=== PATIENT | female | born 1965 | race Caucasian/White ===

== ENCOUNTER 2023-05-10 04:32 | Inpatient (IN) | payer OTHER ==
[~2023-05-10] VITALS: Ht 175.3 cm; Wt 73.2 kg
[2023-05-10 06:38] LABS: BASOPHILS % (AUTO) 0.6 % (0-1); EOSINOPHILS % (AUTO) 0.2 % (0-6); HEMATOCRIT 36.8 % (35.0-45.0); HEMOGLOBIN 12.8 g/dl (12.0-16.0); LYMPHOCYTES # (AUTO) 0.8 X10'3 (1.1-4.8); LYMPHOCYTES % (AUTO) 11.4 % (21-51); MEAN CORPUSCULAR HEMOGLOBIN 30.4 PG (27.0-31.0); MEAN CORPUSCULAR HGB CONC 34.8 g/dL (33.0-36.5); MEAN CORPUSCULAR VOLUME 87.4 FL (78-98); MEAN PLATELET VOLUME 8.4 FL (7.4-10.4); MONOCYTES # (AUTO) 0.4 X10'3 (0-0.9); MONOCYTES % (AUTO) 5.2 % (2-12); NEUTROPHILS # (AUTO) 6.2 X10'3 (1.8-7.7); NEUTROPHILS % (AUTO) 82.6 % (42-75); PLATELET COUNT 268 X10'3 (140-440); RED BLOOD COUNT 4.21 X10'6 (4.20-5.60); WHITE BLOOD COUNT 7.5 X10'3 (4.5-11.0)
[2023-05-10 06:54] LABS: ALANINE AMINOTRANSFERASE 13 U/L (12-78); ALBUMIN 3.4 G/DL (3.4-5.0); ALBUMIN/GLOBULIN RATIO 0.9 (1.1-1.5); ALKALINE PHOSPHATASE 74 IU/L (46-116); ANION GAP 8 (8-16); ASPARTATE AMINO TRANSFERASE 12 U/L (10-37); BLOOD UREA NITROGEN 15 MG/DL (7-18); BUN/CREATININE RATIO 20.3 (10.0-20.0); CALCIUM 9.1 MG/DL (8.5-10.1); CHLORIDE 103 MMOL/L (99-107); CREATININE 0.74 MG/DL (0.40-0.90); GLUCOSE 123 MG/DL (70-104); POTASSIUM 3.7 MMOL/L (3.5-5.1); PRO BRAIN NATRIURETIC PEPTIDE 314 PG/ML (0-125); SODIUM 139 MMOL/L (135-145); TOTAL CARBON DIOXIDE 27.6 MMOL/L (24-32); TOTAL PROTEIN 7.2 G/DL (6.4-8.2); eCRCL 90 ML/MIN; eGFR 81 ML/MIN
[2023-05-10 11:49] LABS: ABG BASE EXCESS -0.1 mmol/L (-2.0-2.0); ABG HCO3 23.8 mmol/L (22.0-26.0); ABG OXYGEN SATURATION 95.2 % (94-97); ABG PCO2 (T) 36.8 mmHg (32.0-45.0); ABG PO2 (T) 75.7 mmHg (75.0-100.0); ALLEN'S TEST POSITIVE; FCOHb 0.4 % (0.0-3.9); FHHb 4.8 % (0.0-5.0); FMetHb 0.3 % (0.0-1.5); FO2Hb 94.5 % (94-97); MODE ROOM AIR; PATIENT TEMPERATURE 37.3; TOTAL HEMOGLOBIN 13.6 G/dl (12.0-16.0)
--- NOTE | 2023-05-10 12:04 | NUR ---
Pt currently laying down in bed, appears to be sleeping. Respirations equal and unlabored. No acute distress noted at this time.
[2023-05-10] MEDS ORDERED: dexamethasone sod phosphate 10mg/ml inj IV STA (12:06)
[2023-05-10] MEDS: levetiracetam inj 1,000 MG in normal saline 100ml IV soln 100 ML IV SCH ×2 (13:01→20:56)
[2023-05-10] MEDS ORDERED: ondansetron/PF 4mg/2ml inj IV ONE (14:30)
[2023-05-10] MEDS ORDERED: morphine 4 MG/ML inj SYRINge IV ONE (14:30)
--- NOTE | 2023-05-10 14:38 | NUR ---
PT REFUSES PAIN MEDICATIONS AT THIS TIME
--- NOTE | 2023-05-10 16:30 | NUR ---
18f alcala cath placed.
--- NOTE | 2023-05-10 17:18 | NUR ---
[facility] DECLINED 1533 MELLISA DECLINED 1616 [facility] DECLINED 1714
--- NOTE | 2023-05-10 17:39 | NUR ---
TO MRI AT THIS TIME.
[2023-05-10] MEDS ORDERED: LORazepam 2 mg/ml vial IV ONE ×2 (18:05)
--- NOTE | 2023-05-10 18:06 | NUR ---
PER DR MAI GIVE 1MG ATIVAN IVP NOW FOR ANXIETY DURING MRI. ADDITIONAL 1MG ATIVAN IVP ORDERED PRN ANXIETY/AGITATION FOR MRI.
[2023-05-10 22:04] LABS: GLUCOSE,CSF 68 MG/DL (40-75); TOTAL PROTEIN,CSF 72 MG/DL (15-45)
[2023-05-10 22:06] LABS: CREATINE KINASE 44 U/L (26-192)
[2023-05-10 22:12] LABS: APTT 26 SECONDS (22-32); INR 1.1 INR; PROTHROMBIN TIME 11.3 SECONDS (9.0-12.0)
[2023-05-10 22:17] LABS: CREATINE KINASE MB < 0.5 ng/ml (0.3-3.6)
[2023-05-10 22:24] LABS: APPEARANCE,CSF CLEAR; CSF SUPERNATANT COLOR COLORLESS; CSF VOLUME 11 ML; TUBE# COUNTED 1
[2023-05-10 22:30] LABS: CSF RBC 150 /CU MM (0); CSF WBC CT 33 /CU MM (0-5)
[2023-05-10 22:31] LABS: APPEARANCE,CSF CLEAR; CSF SUPERNATANT COLOR COLORLESS; CSF VOLUME 11 ML; CSF WBC CT 20 /CU MM (0-5); TUBE# COUNTED 4
[2023-05-10 22:32] LABS: CSF RBC 2 /CU MM (0)
[2023-05-10 22:39] LABS: LYMPHOCYTES,CSF 18 % (40-80); MONOCYTES,CSF 52 % (15-45); NEUTRO,CSF 30 % (0-6)
[2023-05-10 22:41] LABS: LYMPHOCYTES,CSF 18 % (40-80); NEUTRO,CSF 25 % (0-6)
[2023-05-10 22:42] LABS: MONOCYTES,CSF 57 % (15-45)
[2023-05-10 23:04] LABS: BILIRUBIN,URINE NEGATIVE (Neg); CLARITY,URINE CLEAR (Clear); COLOR,URINE YELLOW (Yellow); GLUCOSE, URINE NEGATIVE (Neg); KETONES,URINE >=80 mg/dl (Neg); LEUKOCYTE ESTERASE ,URINE NEGATIVE (Neg); NITRITES, URINE NEGATIVE (Neg); OCCULT BLOOD,URINE NEGATIVE (Neg); PROTEIN,URINE NEGATIVE (Neg)
[2023-05-10] MEDS ORDERED: ringers solution, lacted 1,000 ML IV ONE (23:05)
[2023-05-10] MEDS ORDERED: CefTRIAXone 2gm/D5W 50ml BAG 50 ML IV ONE (23:05)
[2023-05-10] MEDS ORDERED: vancomycin/NS 1 GM ADD-VANTAGE 250 ML IV ONE (23:05)
[2023-05-10 23:08] LABS: UA COLLECTION TYPE FOLEY CATH
[2023-05-10 23:14] LABS: URINE AMPHETAMINE SCREEN NEGATIVE (Neg); URINE BARBITUATE SCREEN NEGATIVE (Neg); URINE BENZODIAZEPINES SCREEN NEGATIVE (Neg); URINE CANNABINOID SCREEN NEGATIVE (Neg); URINE COCAINE SCREEN NEGATIVE (Neg); URINE METHADONE SCREEN NEGATIVE (Neg); URINE OPIATE SCREEN NEGATIVE (Neg); URINE PHENCYCLIDINE SCREEN NEGATIVE (Neg)
[2023-05-11] MEDS ORDERED: ondansetron/PF 4mg/2ml inj IV PRN (01:55)
[2023-05-11] MEDS ORDERED: mag hydrox/Alum hydrox/simeth 30ml oral suspension PO PRN (01:55)
[2023-05-11] MEDS ORDERED: potassium Cl 40MEQ/1/2NS 520ml 520 ML IV PRN (01:55)
[2023-05-11] MEDS ORDERED: potassium Cl 20 mEq SR tablet PO PRN (01:55)
[2023-05-11] MEDS ORDERED: acetaminophen 325mg tablet PO PRN (01:55)
[2023-05-11] MEDS ORDERED: acetaminophen 650mg rectal suppository RC PRN (01:55)
[2023-05-11] MEDS ORDERED: magnesium 4gm in 100ml NS 100 ML IV PRN (01:55)
[2023-05-11] MEDS ORDERED: NO HOME MEDS (02:34)
[2023-05-11] MEDS: acyclovir inj 1,000 MG in normal saline 250ml IV soln 250 ML IV SCH ×2 (03:33→08:22)
[2023-05-11] MEDS: levetiracetam inj 1,000 MG in normal saline 100ml IV soln 100 ML IV SCH ×2 (07:18→20:30)
[2023-05-11 07:22] LABS: BASOPHILS % (AUTO) 0.4 % (0-1); EOSINOPHILS % (AUTO) 0 % (0-6); HEMATOCRIT 36.9 % (35.0-45.0); HEMOGLOBIN 12.7 g/dl (12.0-16.0); LYMPHOCYTES # (AUTO) 1.1 X10'3 (1.1-4.8); LYMPHOCYTES % (AUTO) 13.9 % (21-51); MEAN CORPUSCULAR HEMOGLOBIN 29.3 PG (27.0-31.0); MEAN CORPUSCULAR HGB CONC 34.4 g/dL (33.0-36.5); MEAN CORPUSCULAR VOLUME 85.1 FL (78-98); MEAN PLATELET VOLUME 7.9 FL (7.4-10.4); MONOCYTES # (AUTO) 0.5 X10'3 (0-0.9); MONOCYTES % (AUTO) 6.8 % (2-12); NEUTROPHILS # (AUTO) 6.2 X10'3 (1.8-7.7); NEUTROPHILS % (AUTO) 78.9 % (42-75); PLATELET COUNT 284 X10'3 (140-440); RED BLOOD COUNT 4.33 X10'6 (4.20-5.60); RED CELL DISTRIBUTION WIDTH 14.2 % (11.5-14.5); WHITE BLOOD COUNT 7.8 X10'3 (4.5-11.0)
[2023-05-11 07:39] LABS: ANION GAP 10 (8-16); BLOOD UREA NITROGEN 15 MG/DL (7-18); CALCIUM 8.9 MG/DL (8.5-10.1); CHLORIDE 107 MMOL/L (99-107); CREATININE 0.75 MG/DL (0.40-0.90); GLUCOSE 113 MG/DL (70-104); MAGNESIUM 2.1 MG/DL (1.5-2.4); POTASSIUM 3.9 MMOL/L (3.5-5.1); SODIUM 142 MMOL/L (135-145); TOTAL CARBON DIOXIDE 24.9 MMOL/L (24-32); eCRCL 89 ML/MIN; eGFR 80 ML/MIN
[2023-05-11 07:40] LABS: ALANINE AMINOTRANSFERASE 13 U/L (12-78); ALBUMIN 3.3 G/DL (3.4-5.0); ALKALINE PHOSPHATASE 71 IU/L (46-116); ASPARTATE AMINO TRANSFERASE 9 U/L (10-37); BILIRUBIN,TOTAL 0.7 MG/DL (0.1-1.0); TOTAL PROTEIN 6.6 G/DL (6.4-8.2)
[2023-05-11] MEDS ORDERED: CefTRIAXone 2gm/D5W 50ml BAG 50 ML IV SCH (08:00)
[2023-05-11] MEDS: K and/or MAG REPLACEMENT MC SCH ×2 (08:00→20:40)
[2023-05-11] MEDS ORDERED: docusate sod 100mg capsule PO SCH (08:00)
--- NOTE | 2023-05-11 08:11 | NUR ---
Pt seen by PT and had swallow eval. Pt cleared for full liquid diet.
--- NOTE | 2023-05-11 08:13 | NUR ---
Hospitalist Dr. Salamanca called and updated that pt without maintenance IV fluids. Received VO for NS to run at 50ml/hr.
[2023-05-11] MEDS: normal saline 1000ml 1,000 ML IV SCH (08:23)
--- NOTE | 2023-05-11 15:52 | NUR ---
REPORT GIVEN TO BRENNA BLAIR ASSIGNED ROOM 0574I
[2023-05-11] MEDS ORDERED: NORMAL SALINE IV SCH (16:00)
[2023-05-11] MEDS ORDERED: ACYCLOVIR IV SCH (16:00)
--- NOTE | 2023-05-11 17:06 | NUR ---
Received patient to room 4016 in bed accompanied by x2 family members and staff. Patient obtunded and unable to answer questions. Oriented spouse and son to room and call light. Call light placed within patients reach. Bed low and locked, side railx2 up.
[2023-05-11 17:09] VITALS: BP 124/60; PULSE 57; RESP 20; TEMP 97.3; O2SAT 97
[2023-05-11 17:42] VITALS: RESP 18; O2SAT 97
[2023-05-11 18:00] VITALS: BP 146/57; PULSE 78; RESP 16; TEMP 98.9; O2SAT 96
--- NOTE | 2023-05-11 18:13 | NUR ---
Problems reprioritized. Patient report given, questions answered & plan of care reviewed with NICCI De La O.
[2023-05-11 20:00] VITALS: RESP 18; O2SAT 94
[2023-05-11] MEDS: enoxaparin 40mg/0.4ml syringe SQ SCH (20:30)
[2023-05-11] MEDS: CefTRIAXone 2gm/D5W 50ml BAG 50 ML IV SCH (21:25)
[2023-05-11 22:00] VITALS: BP 125/43; PULSE 58; RESP 17; TEMP 97.7; O2SAT 96
[2023-05-12] MEDS: normal saline 1000ml 1,000 ML IV SCH ×3 (02:04→19:33)
--- NOTE | 2023-05-12 06:29 | NUR ---
Problems reprioritized. Patient report given, questions answered & plan of care reviewed with RAEANN GRAJEDA.
--- NOTE | 2023-05-12 06:43 | NUR ---
Patient in room ORTHO 4016. I have received report from Moraima GRAJEDA and had the opportunity to ask questions and assume patient care.
[2023-05-12 07:00] LABS: ALANINE AMINOTRANSFERASE 9 U/L (12-78); ALBUMIN/GLOBULIN RATIO 0.9 (1.1-1.5); ALKALINE PHOSPHATASE 66 IU/L (46-116); ANION GAP 10 (8-16); ASPARTATE AMINO TRANSFERASE 9 U/L (10-37); BILIRUBIN,TOTAL 0.6 MG/DL (0.1-1.0); BLOOD UREA NITROGEN 18 MG/DL (7-18); BUN/CREATININE RATIO 22.8 (10.0-20.0); CALCIUM 8.9 MG/DL (8.5-10.1); CHLORIDE 108 MMOL/L (99-107); CREATININE 0.79 MG/DL (0.40-0.90); GLUCOSE 95 MG/DL (70-104); POTASSIUM 3.8 MMOL/L (3.5-5.1); SODIUM 143 MMOL/L (135-145); TOTAL CARBON DIOXIDE 24.9 MMOL/L (24-32); TOTAL PROTEIN 6.3 G/DL (6.4-8.2); eCRCL 84 ML/MIN; eGFR 76 ML/MIN
[2023-05-12 07:27] LABS: BASOPHILS # (AUTO) 0.1 X10'3 (0-0.2); BASOPHILS % (AUTO) 0.8 % (0-1); EOSINOPHILS % (AUTO) 0.1 % (0-6); HEMATOCRIT 36.7 % (35.0-45.0); LYMPHOCYTES # (AUTO) 1.6 X10'3 (1.1-4.8); LYMPHOCYTES % (AUTO) 22.8 % (21-51); MEAN CORPUSCULAR HEMOGLOBIN 27.3 PG (27.0-31.0); MEAN CORPUSCULAR HGB CONC 32.7 g/dL (33.0-36.5); MEAN CORPUSCULAR VOLUME 83.6 FL (78-98); MONOCYTES # (AUTO) 0.5 X10'3 (0-0.9); MONOCYTES % (AUTO) 6.6 % (2-12); NEUTROPHILS # (AUTO) 4.7 X10'3 (1.8-7.7); NEUTROPHILS % (AUTO) 69.7 % (42-75); PLATELET COUNT 252 X10'3 (140-440); RED BLOOD COUNT 4.39 X10'6 (4.20-5.60); RED CELL DISTRIBUTION WIDTH 14.1 % (11.5-14.5); WHITE BLOOD COUNT 6.8 X10'3 (4.5-11.0)
[2023-05-12] MEDS: K and/or MAG REPLACEMENT MC SCH ×2 (08:00→20:00)
[2023-05-12] MEDS: CefTRIAXone 2gm/D5W 50ml BAG 50 ML IV SCH ×2 (08:06→20:36)
[2023-05-12] MEDS: levetiracetam inj 1,000 MG in normal saline 100ml IV soln 100 ML IV SCH ×2 (09:16→19:32)
[2023-05-12 10:00] VITALS: BP 145/56; PULSE 60; RESP 16; TEMP 96.1; O2SAT 98
--- NOTE | 2023-05-12 11:25 | NUR ---
RN d/c cari at 1100, placed wick while patient is still slightly drowsy. Patient transferred to the commode this morning with Ax2 and had a large soft formed BM. Patient becoming increasingly more alert and talking a bit more throughout shift
[2023-05-12 18:00] VITALS: BP 139/56; PULSE 47; RESP 18; TEMP 97.4; O2SAT 99
--- NOTE | 2023-05-12 18:30 | NUR ---
Patient in room ORTHO 4016. I have received report from RAEANN GRAJEDA and had the opportunity to ask questions and assume patient care.
[2023-05-12 20:00] VITALS: RESP 18; O2SAT 96
[2023-05-12] MEDS: enoxaparin 40mg/0.4ml syringe SQ SCH (20:40)
[2023-05-12 20:42] LABS: HIV ANTIBODY 1&2 RAPID NON-REACTIVE (Neg)
[2023-05-12 22:00] VITALS: BP 131/59; PULSE 50; RESP 16; TEMP 98.2; O2SAT 96
--- NOTE | 2023-05-13 06:28 | NUR ---
Problems reprioritized. Patient report given, questions answered & plan of care reviewed with ALYSSA RN.
[2023-05-13 06:33] VITALS: BP 103/64; PULSE 53; RESP 16; TEMP 98.1; O2SAT 99
[2023-05-13 07:03] LABS: BASOPHILS % (AUTO) 0.7 % (0-1); EOSINOPHILS % (AUTO) 0.5 % (0-6); HEMATOCRIT 36.3 % (35.0-45.0); HEMOGLOBIN 12.2 g/dl (12.0-16.0); LYMPHOCYTES # (AUTO) 1.3 X10'3 (1.1-4.8); LYMPHOCYTES % (AUTO) 20.9 % (21-51); MEAN CORPUSCULAR HEMOGLOBIN 28.6 PG (27.0-31.0); MEAN CORPUSCULAR HGB CONC 33.8 g/dL (33.0-36.5); MEAN CORPUSCULAR VOLUME 84.6 FL (78-98); MEAN PLATELET VOLUME 8.1 FL (7.4-10.4); MONOCYTES # (AUTO) 0.4 X10'3 (0-0.9); MONOCYTES % (AUTO) 6.8 % (2-12); NEUTROPHILS # (AUTO) 4.6 X10'3 (1.8-7.7); NEUTROPHILS % (AUTO) 71.1 % (42-75); PLATELET COUNT 236 X10'3 (140-440); RED BLOOD COUNT 4.29 X10'6 (4.20-5.60); RED CELL DISTRIBUTION WIDTH 14.2 % (11.5-14.5); WHITE BLOOD COUNT 6.4 X10'3 (4.5-11.0)
[2023-05-13] MEDS: normal saline 1000ml 1,000 ML IV SCH ×2 (07:17→22:07)
[2023-05-13 07:18] LABS: GLUCOSE 95 MG/DL (70-104); POTASSIUM 3.4 MMOL/L (3.5-5.1); SODIUM 142 MMOL/L (135-145)
[2023-05-13 07:19] LABS: ALANINE AMINOTRANSFERASE 13 U/L (12-78); ALBUMIN 2.9 G/DL (3.4-5.0); ALBUMIN/GLOBULIN RATIO 0.9 (1.1-1.5); ALKALINE PHOSPHATASE 64 IU/L (46-116); ANION GAP 9 (8-16); ASPARTATE AMINO TRANSFERASE 8 U/L (10-37); BILIRUBIN,TOTAL 0.5 MG/DL (0.1-1.0); BLOOD UREA NITROGEN 15 MG/DL (7-18); BUN/CREATININE RATIO 22.1 (10.0-20.0); CALCIUM 8.4 MG/DL (8.5-10.1); CHLORIDE 107 MMOL/L (99-107); CREATININE 0.68 MG/DL (0.40-0.90); TOTAL CARBON DIOXIDE 26.1 MMOL/L (24-32); TOTAL PROTEIN 6.2 G/DL (6.4-8.2); eCRCL 98 ML/MIN; eGFR 90 ML/MIN
[2023-05-13] MEDS: levetiracetam inj 1,000 MG in normal saline 100ml IV soln 100 ML IV SCH ×2 (07:37→20:24)
[2023-05-13 08:00] VITALS: RESP 18
[2023-05-13] MEDS: K and/or MAG REPLACEMENT MC SCH ×2 (08:00→19:08)
[2023-05-13] MEDS: CefTRIAXone 2gm/D5W 50ml BAG 50 ML IV SCH ×2 (08:36→20:27)
[2023-05-13 10:07] LABS: C-REACTIVE PROTEIN 2.02 MG/DL (0.0-0.5)
--- NOTE | 2023-05-13 12:12 | NUR ---
PAGER ID: [phone] MESSAGE: ALYSSA RUVALCABA RE: [id number] PATIENT FAMILY REQUESTING REPEAT MRI OF HER HEAD NOW THAT SHE IS MUCH MORE ALERT AND ABLE TO FOLLOW INSTRUCTIONS. THANKS.
[2023-05-13 18:00] VITALS: BP 117/44; PULSE 46; RESP 15; TEMP 98.4; O2SAT 96
[2023-05-13 18:01] VITALS: BP 149/98; PULSE 61; RESP 15; TEMP 97.2; O2SAT 98
--- NOTE | 2023-05-13 18:15 | NUR ---
Patient in room ORTHO 4016. I have received report from NICCI Millan and had the opportunity to ask questions and assume patient care.
--- NOTE | 2023-05-13 18:34 | NUR ---
Problems reprioritized. Patient report given, questions answered & plan of care reviewed with GABINO GRAJEDA.
[2023-05-13] MEDS: potassium Cl 20 mEq SR tablet PO PRN ×2 (19:09→23:06)
[2023-05-13] MEDS: lactose-reduced food (Ensure Enlive) - 237ml bottle PO SCH (19:14)
[2023-05-13 20:00] VITALS: RESP 15; O2SAT 96
[2023-05-13] MEDS: enoxaparin 40mg/0.4ml syringe SQ SCH (20:27)
[2023-05-13 22:00] VITALS: BP 121/48; PULSE 52; RESP 16; TEMP 97.8; O2SAT 99
[2023-05-14 06:12] LABS: ANION GAP 7 (8-16); BLOOD UREA NITROGEN 12 MG/DL (7-18); BUN/CREATININE RATIO 17.1 (10.0-20.0); CALCIUM 8.6 MG/DL (8.5-10.1); CHLORIDE 109 MMOL/L (99-107); GLUCOSE 101 MG/DL (70-104); POTASSIUM 3.9 MMOL/L (3.5-5.1); SODIUM 142 MMOL/L (135-145); TOTAL CARBON DIOXIDE 26.3 MMOL/L (24-32); eCRCL 95 ML/MIN; eGFR 87 ML/MIN
[2023-05-14 06:13] LABS: ALANINE AMINOTRANSFERASE 16 U/L (12-78); ALBUMIN 2.8 G/DL (3.4-5.0); ALBUMIN/GLOBULIN RATIO 0.8 (1.1-1.5); ALKALINE PHOSPHATASE 62 IU/L (46-116); ASPARTATE AMINO TRANSFERASE 11 U/L (10-37); BILIRUBIN,TOTAL 0.4 MG/DL (0.1-1.0); C-REACTIVE PROTEIN 2.01 MG/DL (0.0-0.5); TOTAL PROTEIN 6.2 G/DL (6.4-8.2)
[2023-05-14 06:26] LABS: BASOPHILS % (AUTO) 0.1 % (0-1); EOSINOPHILS # (AUTO) 0.1 X10'3 (0-0.9); EOSINOPHILS % (AUTO) 0.9 % (0-6); HEMATOCRIT 35.5 % (35.0-45.0); HEMOGLOBIN 11.7 g/dl (12.0-16.0); LYMPHOCYTES # (AUTO) 1.3 X10'3 (1.1-4.8); LYMPHOCYTES % (AUTO) 21.1 % (21-51); MEAN CORPUSCULAR HEMOGLOBIN 27.5 PG (27.0-31.0); MEAN CORPUSCULAR HGB CONC 32.9 g/dL (33.0-36.5); MEAN CORPUSCULAR VOLUME 83.5 FL (78-98); MEAN PLATELET VOLUME 8.2 FL (7.4-10.4); MONOCYTES # (AUTO) 0.5 X10'3 (0-0.9); MONOCYTES % (AUTO) 7.1 % (2-12); NEUTROPHILS # (AUTO) 4.5 X10'3 (1.8-7.7); NEUTROPHILS % (AUTO) 70.8 % (42-75); PLATELET COUNT 237 X10'3 (140-440); RED BLOOD COUNT 4.25 X10'6 (4.20-5.60); RED CELL DISTRIBUTION WIDTH 14.2 % (11.5-14.5); WHITE BLOOD COUNT 6.4 X10'3 (4.5-11.0)
--- NOTE | 2023-05-14 06:27 | NUR ---
Problems reprioritized. Patient report given, questions answered & plan of care reviewed with NICCI Obrien.
[2023-05-14 06:57] VITALS: BP 135/47; PULSE 50; RESP 16; TEMP 98.2; O2SAT 97
[2023-05-14] MEDS: K and/or MAG REPLACEMENT MC SCH ×2 (06:59→19:34)
[2023-05-14] MEDS: levetiracetam inj 1,000 MG in normal saline 100ml IV soln 100 ML IV SCH ×2 (07:45→19:33)
[2023-05-14] MEDS: lactose-reduced food (Ensure Enlive) - 237ml bottle PO SCH ×3 (08:00→18:01)
[2023-05-14 11:00] VITALS: BP 133/60; PULSE 52; RESP 16; TEMP 97.6; O2SAT 98
[2023-05-14] MEDS ORDERED: GADOTERATE MEGLUMINE 7.5 MMOL/15 ML VIAL IV ONE (11:11)
[2023-05-14] MEDS: normal saline 1000ml 1,000 ML IV SCH (14:57)
[2023-05-14 18:00] VITALS: BP 123/57; PULSE 50; RESP 18; TEMP 98.4; O2SAT 98
--- NOTE | 2023-05-14 18:43 | NUR ---
Report given to Thelma GRAJEDA, pt resting comfortably in room with and son at bedside.
[2023-05-14] MEDS: enoxaparin 40mg/0.4ml syringe SQ SCH (19:33)
[2023-05-14 22:00] VITALS: BP 108/45; PULSE 51; RESP 20; TEMP 97.9; O2SAT 95
[2023-05-15 06:00] VITALS: BP 130/55; PULSE 15; RESP 15; TEMP 97.9; O2SAT 94
[2023-05-15 06:28] LABS: ALANINE AMINOTRANSFERASE 20 U/L (12-78); ALBUMIN 2.7 G/DL (3.4-5.0); ALBUMIN/GLOBULIN RATIO 0.9 (1.1-1.5); ALKALINE PHOSPHATASE 62 IU/L (46-116); ANION GAP 6 (8-16); ASPARTATE AMINO TRANSFERASE 11 U/L (10-37); BILIRUBIN,TOTAL 0.4 MG/DL (0.1-1.0); BLOOD UREA NITROGEN 16 MG/DL (7-18); BUN/CREATININE RATIO 21.3 (10.0-20.0); C-REACTIVE PROTEIN 1.57 MG/DL (0.0-0.5); CALCIUM 8.9 MG/DL (8.5-10.1); CHLORIDE 109 MMOL/L (99-107); CREATININE 0.75 MG/DL (0.40-0.90); GLUCOSE 108 MG/DL (70-104); POTASSIUM 3.9 MMOL/L (3.5-5.1); SODIUM 143 MMOL/L (135-145); TOTAL CARBON DIOXIDE 27.9 MMOL/L (24-32); TOTAL PROTEIN 5.8 G/DL (6.4-8.2); eCRCL 89 ML/MIN; eGFR 80 ML/MIN
--- NOTE | 2023-05-15 06:37 | NUR ---
Problems reprioritized. Patient report given, questions answered & plan of care reviewed with TRINI NAVA.
[2023-05-15 06:48] LABS: EOSINOPHILS # (AUTO) 0.1 X10'3 (0-0.9); EOSINOPHILS % (AUTO) 1.7 % (0-6); HEMATOCRIT 34.5 % (35.0-45.0); HEMOGLOBIN 11.6 g/dl (12.0-16.0); MEAN CORPUSCULAR HGB CONC 33.7 g/dL (33.0-36.5); MEAN CORPUSCULAR VOLUME 83.3 FL (78-98); MEAN PLATELET VOLUME 7.9 FL (7.4-10.4); PLATELET COUNT 242 X10'3 (140-440); RED BLOOD COUNT 4.14 X10'6 (4.20-5.60); RED CELL DISTRIBUTION WIDTH 14.3 % (11.5-14.5); WHITE BLOOD COUNT 6.4 X10'3 (4.5-11.0)
[2023-05-15 06:57] LABS: BASOPHILS % (AUTO) 0.8 % (0-1); LYMPHOCYTES # (AUTO) 1.4 X10'3 (1.1-4.8); LYMPHOCYTES % (AUTO) 23.4 % (21-51); MONOCYTES # (AUTO) 0.4 X10'3 (0-0.9); MONOCYTES % (AUTO) 7.4 % (2-12); NEUTROPHILS % (AUTO) 66.7 % (42-75)
[2023-05-15] MEDS: K and/or MAG REPLACEMENT MC SCH ×2 (07:39→20:00)
[2023-05-15] MEDS: lactose-reduced food (Ensure Enlive) - 237ml bottle PO SCH ×3 (07:39→17:41)
[2023-05-15 08:00] VITALS: RESP 15; O2SAT 94
[2023-05-15] MEDS: levetiracetam inj 1,000 MG in normal saline 100ml IV soln 100 ML IV SCH ×2 (08:51→20:56)
[2023-05-15 10:00] VITALS: BP 116/51; PULSE 47; RESP 14; TEMP 98.7; O2SAT 100
[2023-05-15] MEDS: normal saline 1000ml 1,000 ML IV SCH ×2 (14:18→20:57)
[2023-05-15 15:48] LABS: VDRL, CSF Non Reactive (Non Rea:<1:1)
[2023-05-15 18:00] VITALS: BP 136/52; PULSE 56; RESP 18; TEMP 97.5; O2SAT 100
--- NOTE | 2023-05-15 18:00 | NUR ---
I have reviewed and agree with interventions, assessments, and documentation by Snoal Gant LVN.
[2023-05-15] MEDS: enoxaparin 40mg/0.4ml syringe SQ SCH (20:57)
[2023-05-15 22:00] VITALS: BP 119/39; PULSE 52; RESP 18; TEMP 97.4; O2SAT 95
[2023-05-16 06:00] VITALS: BP 112/62; PULSE 70; RESP 18; TEMP 97.3; O2SAT 94
[2023-05-16 06:48] LABS: BASOPHILS % (AUTO) 0.7 % (0-1); EOSINOPHILS # (AUTO) 0.1 X10'3 (0-0.9); EOSINOPHILS % (AUTO) 1.9 % (0-6); HEMATOCRIT 35.4 % (35.0-45.0); HEMOGLOBIN 11.9 g/dl (12.0-16.0); LYMPHOCYTES # (AUTO) 1.5 X10'3 (1.1-4.8); LYMPHOCYTES % (AUTO) 23.4 % (21-51); MEAN CORPUSCULAR HEMOGLOBIN 28.2 PG (27.0-31.0); MEAN CORPUSCULAR HGB CONC 33.7 g/dL (33.0-36.5); MEAN CORPUSCULAR VOLUME 83.7 FL (78-98); MEAN PLATELET VOLUME 7.5 FL (7.4-10.4); MONOCYTES # (AUTO) 0.5 X10'3 (0-0.9); MONOCYTES % (AUTO) 7.2 % (2-12); NEUTROPHILS # (AUTO) 4.4 X10'3 (1.8-7.7); NEUTROPHILS % (AUTO) 66.8 % (42-75); PLATELET COUNT 222 X10'3 (140-440); RED BLOOD COUNT 4.23 X10'6 (4.20-5.60); RED CELL DISTRIBUTION WIDTH 14.5 % (11.5-14.5); WHITE BLOOD COUNT 6.5 X10'3 (4.5-11.0)
--- NOTE | 2023-05-16 06:55 | NUR ---
Problems reprioritized. Patient report given, questions answered & plan of care reviewed with TRINI DE LA FUENTE.
[2023-05-16 07:28] LABS: ALANINE AMINOTRANSFERASE 22 U/L (12-78); ALBUMIN 2.9 G/DL (3.4-5.0); ALBUMIN/GLOBULIN RATIO 0.9 (1.1-1.5); ALKALINE PHOSPHATASE 62 IU/L (46-116); ANION GAP 8 (8-16); ASPARTATE AMINO TRANSFERASE 12 U/L (10-37); BILIRUBIN,TOTAL 0.4 MG/DL (0.1-1.0); BLOOD UREA NITROGEN 12 MG/DL (7-18); BUN/CREATININE RATIO 17.4 (10.0-20.0); C-REACTIVE PROTEIN 1.27 MG/DL (0.0-0.5); CHLORIDE 108 MMOL/L (99-107); CREATININE 0.69 MG/DL (0.40-0.90); GLUCOSE 104 MG/DL (70-104); POTASSIUM 3.8 MMOL/L (3.5-5.1); SODIUM 143 MMOL/L (135-145); TOTAL CARBON DIOXIDE 27.1 MMOL/L (24-32); TOTAL PROTEIN 6.1 G/DL (6.4-8.2); eCRCL 96 ML/MIN; eGFR 88 ML/MIN
[2023-05-16] MEDS: lactose-reduced food (Ensure Enlive) - 237ml bottle PO SCH ×3 (08:00→17:51)
[2023-05-16] MEDS: K and/or MAG REPLACEMENT MC SCH ×2 (08:00→19:44)
[2023-05-16] MEDS: levetiracetam inj 1,000 MG in normal saline 100ml IV soln 100 ML IV SCH ×2 (08:20→19:43)
[2023-05-16 11:30] VITALS: BP 119/70; PULSE 68; RESP 16; TEMP 98; O2SAT 96
[2023-05-16] MEDS: nystatin 15 GM powder TP SCH ×2 (13:00→19:45)
[2023-05-16] MEDS: cetirizine 10mg tablet PO SCH (16:05)
[2023-05-16] MEDS ORDERED: iohexol 350MG/ML 100ml bottle IV ONE (16:18)
--- NOTE | 2023-05-16 17:19 | NUR ---
Initial: Pt admit DX aseptic meningitis, improving metabolic encephalopathy, allergic rhinitis, and chronic cough/SOB per EMR. Initially 0-25% full liquid meals advanced to regular diet 05/15 [facility] w/ PO improving ~69% avg since on solid meals. Ensure Enlive TID started 05/13 WS per EMR PO ~75% avg ONS has been receiving Glucerna since 05/15 WL during Enlive shortage though returning to Enlive WS tonight. Overall partially meeting estimated needs given initial poor intake w/ restrictive diet however if current intake persists will meet estimated needs. LBM 05/16 per EMR. Will continue to follow. Rec: 1. continue regular diet 2. Ensure Enlive TID per MD; if current meal intake persists stop ONS 3. routine bowel care 4. scaled wt this admit; subsequent weekly wt Addendum: 05/16/23 at [address] Amended: Links added.
[2023-05-16] MEDS: normal saline 1000ml 1,000 ML IV SCH (17:50)
[2023-05-16 18:00] VITALS: BP 115/42; PULSE 57; RESP 16; TEMP 97.4; O2SAT 99
--- NOTE | 2023-05-16 18:00 | NUR ---
I have reviewed and agree with interventions, assessments, and documentation by Lori Garrett LVN.
[2023-05-16] MEDS: enoxaparin 40mg/0.4ml syringe SQ SCH (19:43)
[2023-05-16 21:18] LABS: CSF WEST NILE VIRUS, IGG Negative (Negative); CSF WEST NILE VIRUS, IGM Negative (Negative)
[2023-05-16 22:00] VITALS: BP 105/42; PULSE 55; RESP 16; TEMP 97.9; O2SAT 97
[2023-05-17] MEDS: normal saline 1000ml 1,000 ML IV SCH (03:50)
[2023-05-17 06:00] VITALS: BP 108/52; PULSE 98; RESP 16; TEMP 97.4; O2SAT 99
--- NOTE | 2023-05-17 06:15 | NUR ---
Problems reprioritized. Patient report given, questions answered & plan of care reviewed with TRINI NAVA. Addendum: 05/17/23 at 0656 by Thelma Alvarado RN PT HAS HAD NO FOOD AFTER MIDNIGHT BUT HAD HER OWN CUP IN ROOM AND WAS NOT SURE WHEN LAST DRINK WAS. FLUIDS MOVED OUT OF REACH AT 0520 05/17/23
[2023-05-17] MEDS: lactose-reduced food (Ensure Enlive) - 237ml bottle PO SCH ×2 (07:45→13:00)
[2023-05-17] MEDS: cetirizine 10mg tablet PO SCH (07:46)
[2023-05-17 08:00] VITALS: RESP 16; O2SAT 97
[2023-05-17] MEDS: K and/or MAG REPLACEMENT MC SCH (08:00)
[2023-05-17] MEDS: nystatin 15 GM powder TP SCH ×2 (08:00→13:00)
[2023-05-17] MEDS: levetiracetam inj 1,000 MG in normal saline 100ml IV soln 100 ML IV SCH (08:39)
[2023-05-17] MEDS ORDERED: iohexol 350MG/ML 100ml bottle IV ONE (09:58)
[2023-05-17 10:00] VITALS: BP 118/58; PULSE 51; RESP 16; TEMP 97.5; O2SAT 97
[2023-05-17] MEDS ORDERED: CETI10TA14 PO (16:50)
[2023-05-17] MEDS ORDERED: NYSPWD TP (16:50)
--- NOTE | 2023-05-17 18:00 | NUR ---
Patient discharged home via POV with spouse. ALL of her personal items sent with, PIV d/c'd tip in tact. Alert and appropriate at the time of discharge.
== END 2023-05-17 17:55 | disposition home or self-care (01) | DRG 97 ==
LOC: ER 04:33 → ED HOLD 05-11 01:59 → ORTHO 4S 05-11 16:27
PROVIDERS: ADMIT Family Medicine; ATTEND Internal Medicine
PROC: 009U3ZX Drainage of Spinal Canal, Percutaneous Approach, Diagnostic (ICD-10-PCS; principal; 2023-05-10)
PROC: B32T1ZZ Computerized Tomography (CT Scan) of Left Pulmonary Artery using Low Osmolar Contrast (ICD-10-PCS; 2023-05-17)
PROC: B3201ZZ Computerized Tomography (CT Scan) of Thoracic Aorta using Low Osmolar Contrast (ICD-10-PCS; 2023-05-17)
PROC: B32S1ZZ Computerized Tomography (CT Scan) of Right Pulmonary Artery using Low Osmolar Contrast (ICD-10-PCS; 2023-05-17)
DX: G03.0 Nonpyogenic meningitis (principal); G93.41 Metabolic encephalopathy; G93.6 Cerebral edema; R05.3 Chronic cough; J30.9 Allergic rhinitis, unspecified; G47.33 Obstructive sleep apnea (adult) (pediatric); Z80.42 Family history of malignant neoplasm of prostate
CPT/HCPCS: 36415; 36600; 70450; 70551; 70553; 71045; 71275; 80053; 80305; 81003; 82140; 82550; 82553; 82803; 82945; 82948; 83605; 83735; 83880; 84145; 84157; 84484; 85018; 85025; 85610; 85651; 85730; 86140; 86592; 86617; 86703; 86788; 86789; 87015; 87040; 87070; 87081; 87529; 87899; 89051; 92508; 92616; 93005; 97116; 97162; 97530; 99285; A4314; A9575; G0378; J0133; J0696; J1100; J1650; J1953; J2060; J3370; J3490; J7030; J7050; J7120; Q9967

== ENCOUNTER 2024-04-20 11:01 | Emergency (ER) | payer OTHER, SELFPAY ==
[~2024-04-20] VITALS: Ht 175.3 cm; Wt 120.5 kg
[~2024-04-20 11:01] MED LIST: CETI10TA14 PO; NYSPWD TP
[2024-04-20 11:05] VITALS: BP 136/75; PULSE 77; RESP 16; TEMP 97.7; O2SAT 96
[2024-04-20 11:31] LABS: CLARITY,URINE CLOUDY (Clear)
[2024-04-20 11:34] LABS: COLOR,URINE PINK (Yellow); UA COLLECTION TYPE CLN CATCH MIDSTREAM
[2024-04-20 11:36] LABS: BACTERIA,URINE FEW /HPF (Neg); MUCUS STRANDS NONE SEEN /LPF (Neg); RBC,URINE TNTC /HPF (0-2); SQUAMOUS EPITHELIAL CELL,UR FEW /LPF (FEW); WBC,URINE 20-30 /HPF (0-4)
[2024-04-20 11:47] LABS: URINE HCG NEGATIVE (NEG)
[2024-04-20 11:58] LABS: ALBUMIN 3.7 G/DL (3.4-5.0); ANION GAP 9 (8-16); BLOOD UREA NITROGEN 14 MG/DL (7-18); BUN/CREATININE RATIO 17.7 (10.0-20.0); CALCIUM 9.3 MG/DL (8.5-10.1); CHLORIDE 104 MMOL/L (99-107); CREATININE 0.79 MG/DL (0.40-0.90); GLUCOSE 106 MG/DL (70-104); SODIUM 141 MMOL/L (135-145); TOTAL CARBON DIOXIDE 28.4 MMOL/L (24-32); eCRCL 83 ML/MIN; eGFR 75 ML/MIN
[2024-04-20 12:00] LABS: BASOPHILS # (AUTO) 0.1 X10'3 (0-0.2); BASOPHILS % (AUTO) 0.7 % (0-1); EOSINOPHILS % (AUTO) 0.5 % (0-6); HEMATOCRIT 40.2 % (35.0-45.0); HEMOGLOBIN 13.4 g/dl (12.0-16.0); LYMPHOCYTES # (AUTO) 1.2 X10'3 (1.1-4.8); LYMPHOCYTES % (AUTO) 12.9 % (21-51); MEAN CORPUSCULAR HEMOGLOBIN 27.9 PG (27.0-31.0); MEAN CORPUSCULAR HGB CONC 33.2 g/dL (33.0-36.5); MEAN PLATELET VOLUME 7.5 FL (7.4-10.4); MONOCYTES # (AUTO) 0.4 X10'3 (0-0.9); MONOCYTES % (AUTO) 4.8 % (2-12); NEUTROPHILS # (AUTO) 7.3 X10'3 (1.8-7.7); NEUTROPHILS % (AUTO) 81.1 % (42-75); PLATELET COUNT 287 X10'3 (140-440); RED BLOOD COUNT 4.79 X10'6 (4.20-5.60); RED CELL DISTRIBUTION WIDTH 14.2 % (11.5-14.5); WHITE BLOOD COUNT 8.9 X10'3 (4.5-11.0)
[2024-04-20] MEDS ORDERED: AMOX-117 PO (12:32)
== END 2024-04-20 12:33 | disposition home or self-care (01) ==
LOC: ER 11:02
DX: N39.0 Urinary tract infection, site not specified (principal); R10.30 Lower abdominal pain, unspecified; J32.9 Chronic sinusitis, unspecified; Z79.2 Long term (current) use of antibiotics; Z79.899 Other long term (current) drug therapy
CPT/HCPCS: 36415; 80048; 81001; 81025; 85025; 87077; 87088; 87186; 99283